=== PATIENT | male | born 1985 | race Caucasian/White ===

== ENCOUNTER 2018-05-12 04:27 | Emergency (ER) | payer SELFPAY ==
[2018-05-12 04:43] VITALS: RESP 18; O2SAT 99
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
[2018-05-12 06:02] VITALS: BP 121/61; PULSE 90; TEMP 98.5
== END 2018-05-12 06:04 | disposition home or self-care (01) ==
LOC: H.ER 04:27
DX: S09.90XA Unspecified injury of head, initial encounter (principal); Y04.0XXA Assault by unarmed brawl or fight, initial encounter; Y93.01 Activity, walking, marching and hiking; Y92.89 Other specified places as the place of occurrence of the external cause